=== PATIENT | female | born 1985 | race Caucasian/White ===

== ENCOUNTER → 2017-06-04 | Outpatient (CLI) | payer MEDICAID, SELFPAY | PROVIDERS: Visit Provider Nurse Practitioner Family | DX: R53.83 Other fatigue (principal); E55.9 Vitamin D deficiency, unspecified; Z79.899 Other long term (current) drug therapy | CPT/HCPCS: 80053; 80061; 82306; 83036; 84439; 84443; 85025 ==

== ENCOUNTER 2017-06-18 14:21 | Emergency (ER) | payer MEDICAID, SELFPAY ==
[2017-06-18 15:07] VITALS: BP 154/69; PULSE 73; RESP 18; TEMP 36.6; O2SAT 97; BMI 31.9
[2017-06-18 15:30] LABS: Microscopic, Urine URINE MICROSCOPIC (MICROSCOPIC)
[2017-06-18 15:34] LABS: Appearance,Urine CLOUDY (Clear); Bilirubin,Urine Negative (Negative); Blood, Urine Negative (Negative); Color,Urine DK YELLOW (Yellow); Glucose,Urine (UA) Negative (Negative); Ketones,Urine Negative (Negative); Leukocyte Esterase,Urine Negative (Negative); Nitrate,Urine POSITIVE (Negative); PH,Urine 5.5 (5.0-8.5); Protein,Urine Negative (Negative); Specific Gravity, Urine >= 1.030 (1.005-1.030); Urobilinogen,Urine 0.2 EU/dl (0.2)
[2017-06-18 15:42] LABS: Alanine Aminotransferase 60 U/L (12-78); Albumin Level 3.8 gm/dL (3.4-5.0); Albumin/Globulin Ratio 1.1 (1.1-1.8); Alkaline Phosphatase 76 U/L (46-116); Amylase 32 U/L (25-125); Anion Gap 11.7 mEq/L (5-15); Aspartate Amino Transferase 36 U/L (15-37); Basophils % 0.3 % (0.1-2.0); Bilirubin,Total 0.6 mg/dL (0.2-1.0); Blood Urea Nitrogen 8 mg/dL (7-18); Calcium 8.5 mg/dL (8.5-10.1); Carbon Dioxide 23 mmol/L (21.0-32.0); Chloride 107 mmol/L (98-107); Creatinine Clearance Estimated 118 mg/ml (0-300); Eosinophils # 0.2 K/mm3 (0.0-0.4); Estimated Glomerular Filt Rate > 60 ml/min (>60); GFR (African American) > 60 ML/MIN (>60); Globulin 3.6 gm/dl (1.3-3.2); Glucose 107 mg/dL (74-106); Hematocrit 39.8 % (37.0-47.0); Hemoglobin 12.9 g/dL (12.2-16.2); Lymphocytes # 2.2 K/mm3 (0.7-4.5); Lymphocytes % 32.6 K/mm3 (10-50); Mean Corpuscular HGB Conc 32.5 g/dL (31.8-35.4); Mean Corpuscular Hemoglobin 29.2 pg (27.0-31.2); Mean Corpuscular Volume 89.8 fl (81-99); Mean Platelet Volume 7.7 fl (7.4-10.4); Monocytes # 0.3 K/mm3 (0.1-1.0); Monocytes % 4.7 % (1.7-9.3); Neutrophils % 59.3 % (37.0-80.0); Platelet Count 189 K/mm3 (142-424); Potassium 3.7 mmoL/L (3.5-5.1); Red Blood Count 4.43 M/mm3 (4.20-5.40); Red Cell Distribution Width 13.1 % (11.5-17.5); Sodium 138 mmol/L (136-145); Total Protein,Serum 7.4 gm/dL (6.4-8.2); White Blood Count 6.8 K/mm3 (4.8-10.8)
[2017-06-18 15:49] LABS: Bacteria,Urine 4+ /lpf
[2017-06-18 15:52] LABS: Lipase 113 u/L (73-393)
--- NOTE | 2017-06-18 16:50 | PC.NURSE ---
Provided patient with a warm blanket. She was asking how long it will be before the doctor is in and wanted to know if her labs were back. I explained that her labs are back and the doctor would be in as soon as possible. I explained the high volume
--- NOTE | 2017-06-18 17:08 | CT_ITS ---
CT abdomen pelvis wo con CLINICAL INDICATION: Right-sided abdominal pain ITS.REASON: ABD PAIN ORDERING PHYSICIAN: Amena Navarro MD PATIENT AGE: 32 years COMPARISON: None TECHNIQUE: Axial images obtained with sagittal and coronal reformats. PROCEDURE: Oral Contrast: None IV Contrast: None . FINDINGS: Lung bases are clear. There is mild diffuse hepatic steatosis with no focal liver lesion evident. No radiopaque gallstones. Mild splenomegaly at 14 cm. The pancreas and adrenal glands and gallbladder have an unremarkable unenhanced CT appearance. There is lobulation of the kidneys as a normal variant. No renal calculi or hydronephrosis. Unremarkable appendix. There is 3.6 cm isodensity in the right adnexa system with ovarian cyst. This may be confirmed with pelvic ultrasound clinically warranted. No focal inflammatory change of the pelvis. There is rounded soft tissue density in the adnexal region just superior and lateral to the region of the cervix on both sides slightly more prominent on the right. This is of unknown etiology and could be due to prominent vessels, dilated fallopian tube, or an enlarged lymph node. Probably not significantly changed from 05/09/2017. There is a small amount fluid in the pelvis.. Ventral hernia repair with persistent herniation of fat into the anterior abdominal wall superficial to the hernia repair as before IMPRESSION: 1. Probable 3.6 cm right ovarian cyst which may be confirmed with ultrasound. Nodularity is present in the adnexal region bilaterally slightly more prominent on the left and may be due to prominent vessels, prominence of the fallopian tube, or small lymph nodes probably not significant changed 2. Mild splenomegaly. 3. Other nonacute findings as described above
[2017-06-18 17:45] LABS: Urine Pregnancy, HCG Qual. Negative (Negative)
--- NOTE | 2017-06-18 18:28 | [facility].EDGENADL ---
ED Disposition Clinical Impression: Pyuria, Acute right flank pain Disposition: Home, Self-Care Condition on Discharge: Good Instructions: DI for Flank Pain Additional Instructions: Rx pyridium and Bactrim, see your family MD next week for recheck. Prescriptions: Phenazopyridine HCl [Pyridium 200mg Tablet] 200 mg PO TIDP PRN #6 tablet PRN Reason: pain with urination Sulfamethoxazole/Trimethoprim [Bactrim DS tablet] 1 each PO BID #14 tablet Referrals: Jean-Pierre De Los Santos MD [Primary Care Provider] - - Critical Care Critical Care Time: No Attestation: On 06/18/17, the high probability of a clinically significant, sudden or life threatening deterioration of the following system(s) required my full and direct attention, intervention and personal management. The time I documented below is in addition to time spent performing reported procedures but includes the following listed in this critical care notation. Medical Decision Making Vital Signs: 06/18/17 15:07 Temperature 97.9 F Temperature Source Oral Pulse Rate [Right Brachial] 73 Respiratory Rate 18 Blood Pressure [Right Arm] 154/69 Blood Pressure Mean [Right Arm] 97 Blood Pressure Source [Right Arm] Automatic Cuff Blood Pressure Position [Right Arm] Sitting 02 Sat by Pulse Oximetry 97 Oxygen Delivery Method Room Air - Lab Data Lab results reviewed: Yes: I reviewed the patient's lab results. Lab Results 06/18/17 15:15: Urine Color Dk yellow, Urine Appearance Cloudy, Urine pH 5.5, Ur Specific [place] >= 1.030, Urine Protein Negative, Urine Glucose (UA) Negative, Urine Ketones Negative, Urine Blood Negative, Urine Nitrate Positive, Urine Bilirubin Negative, Urine Urobilinogen 0.2, Ur Leukocyte Esterase Negative, Urine WBC 10-20, Ur Squamous Epith Cells 5-10, Urine Bacteria 4+ 06/18/17 15:15: WBC 6.8, RBC 4.43, Hgb 12.9, Hct 39.8, MCV 89.8, MCH 29.2, MCHC 32.5, RDW 13.1, Plt Count 189, MPV 7.7, Neut % (Auto) 59.3, Lymph % (Auto) 32.6, [place] % (Auto) 4.7, Eos % (Auto) 3.0, Baso % (Auto) 0.3, Neut # (Auto) 4.0, Lymph # (Auto) 2.2, [place] # (Auto) 0.3, Eos # (Auto) 0.2, Baso # (Auto) 0.0 06/18/17 15:15: Sodium 138, Potassium 3.7, Chloride 107, Carbon Dioxide 23, Anion Gap 11.7, BUN 8, Creatinine 0.90, Estimated Creat Clear 118, Estimated GFR > 60, Est GFR ( Amer) > 60, Glucose 107 H, Calcium 8.5, Total Bilirubin 0.6, AST 36, ALT 60, Alkaline Phosphatase 76, Total Protein 7.4, Albumin 3.8, Globulin 3.6 H, Albumin/Globulin Ratio 1.1, Amylase 32, Lipase 113 06/18/17 15:25: Urine HCG, Qual Negative Result diagrams: 06/18/17 15:15 06/18/17 15:15 Orders (Tests/Meds): ED MEDICATIONS Generic Name Dose Route Start Last Admin Trade Name Freq PRN Reason Stop Dose Admin Sodium Chloride 10 ml 06/18/17 15:23 Saline Flush 10ml Syringe IV 07/18/17 15:22 NEEDED PRN Maintain IV Site ORDERS Category Date Time Status Urine Culture Stat Micro 06/18/17 15:15 Received - CT Data CT Scan: Abdomen, Pelvis Time Received: 18:[address] Reviewed: Yes: I have reviewed the patient's CT results, I have viewed the radiologist's interpretation Preliminary Findings: Abnormal Findings Narrative: R ovarian cyst; mild splenomegaly per report - Zay Inquiry Pt receiving controlled substance: No General Adult HPI - General Chief complaint: PAIN Stated complaint: POSS UTI,HIGH LIVER ENZYMES Time Seen by Provider: 06/18/17 15:30 Mode of Arrival: Family Vehicle Limitations: No Limitations Description of Symptoms (Recalled from ER Triage Doc. by RN): PT STATES THAT SHE WAS HERE A MONTH AGO WITH A UTI AND NOW SHE IS HAVING RIGHT LOWER BACK PAIN. INSTRUCTED BY [place] TO COME TO ER R/T LIVER ENZYMES BEING ELEVATED AND PT DOES HAVE AN APPOINTMENT WITH [facility] SPECIAL[facility]. - History of Present Illness HPI narrative: hx UTI, hx renal stents, LMP 05/23/17, no fever, having back pain right flank without hematuria or vaginal discharge,
--- NOTE | 2017-06-18 18:34 | ED_ITS ---
ED Disposition Clinical Impression: Pyuria, Acute right flank pain Disposition: Home, Self-Care Condition on Discharge: Good Instructions: DI for Flank Pain Additional Instructions: Rx pyridium and Bactrim, see your family MD next week for recheck. Prescriptions: Phenazopyridine HCl [Pyridium 200mg Tablet] 200 mg PO TIDP PRN #6 tablet PRN Reason: pain with urination Sulfamethoxazole/Trimethoprim [Bactrim DS tablet] 1 each PO BID #14 tablet Referrals: Jean-Pierre De Los Santos MD [Primary Care Provider] - - Critical Care Critical Care Time: No Attestation: On 06/18/17, the high probability of a clinically significant, sudden or life threatening deterioration of the following system(s) required my full and direct attention, intervention and personal management. The time I documented below is in addition to time spent performing reported procedures but includes the following listed in this critical care notation. Medical Decision Making Vital Signs: 06/18/17 15:07 Temperature 97.9 F Temperature Source Oral Pulse Rate [Right Brachial] 73 Respiratory Rate 18 Blood Pressure [Right Arm] 154/69 Blood Pressure Mean [Right Arm] 97 Blood Pressure Source [Right Arm] Automatic Cuff Blood Pressure Position [Right Arm] Sitting 02 Sat by Pulse Oximetry 97 Oxygen Delivery Method Room Air - Lab Data Lab results reviewed: Yes: I reviewed the patient's lab results. Lab Results 06/18/17 15:15: Urine Color Dk yellow, Urine Appearance Cloudy, Urine pH 5.5, Ur Specific [place] >= 1.030, Urine Protein Negative, Urine Glucose (UA) Negative, Urine Ketones Negative, Urine Blood Negative, Urine Nitrate Positive, Urine Bilirubin Negative, Urine Urobilinogen 0.2, Ur Leukocyte Esterase Negative , Urine WBC 10-20, Ur Squamous Epith Cells 5-10, Urine Bacteria 4+ 06/18/17 15:15: WBC 6.8, RBC 4.43, Hgb 12.9, Hct 39.8, MCV 89.8, MCH 29.2, MCHC 32.5, RDW 13.1, Plt Count 189, MPV 7.7, Neut % (Auto) 59.3, Lymph % (Auto) 32.6 , [place] % (Auto) 4.7, Eos % (Auto) 3.0, Baso % (Auto) 0.3, Neut # (Auto) 4.0, Lymph # (Auto) 2.2, [place] # (Auto) 0.3, Eos # (Auto) 0.2, Baso # (Auto) 0.0 06/18/17 15:15: Sodium 138, Potassium 3.7, Chloride 107, Carbon Dioxide 23, Anion Gap 11.7, BUN 8, Creatinine 0.90, Estimated Creat Clear 118, Estimated GFR > 60, Est GFR ( Amer) > 60, Glucose 107 H, Calcium 8.5, Total Bilirubin 0.6, AST 36, ALT 60, Alkaline Phosphatase 76, Total Protein 7.4, Albumin 3.8, Globulin 3.6 H, Albumin/Globulin Ratio 1.1, Amylase 32, Lipase 113 06/18/17 15:25: Urine HCG, Qual Negative Result diagrams: 06/18/17 15:15 06/18/17 15:15 Orders (Tests/Meds): ED MEDICATIONS Generic Name Dose Route Start Last Admin Trade Name Freq PRN Reason Stop Dose Admin Sodium Chloride 10 ml 06/18/17 15:23 Saline Flush 10ml Syringe IV 07/18/17 15:22 NEEDED PRN Maintain IV Site ORDERS Category Date Time Status Urine Culture Stat Micro 06/18/17 15:15 Received - CT Data CT Scan: Abdomen, Pelvis Time Received: 18:[address] Reviewed: Yes: I have reviewed the patient's CT results, I have viewed the radiologist's interpretation Preliminary Findings: Abnormal Findings Narrative: R ovarian cyst; mild splenomegaly per report - Zay Inquiry Pt receiving controlled substance: No General Adult HPI - General Chief complaint: PAIN State
== END 2017-06-18 18:58 | disposition home or self-care (01) ==
PROVIDERS: Emergency Provider Emergency Medicine; PCP Emergency Medicine
DX: N39.0 Urinary tract infection, site not specified (principal); N83.201 Unspecified ovarian cyst, right side; Z88.6 Allergy status to analgesic agent
CPT/HCPCS: 74176; 80053; 81001; 81025; 82150; 83690; 85025; 87086; 87088; 87186; 99284

== ENCOUNTER → 2017-07-06 15:28 | Outpatient (CLI) | payer MEDICAID, SELFPAY ==
[2017-07-06 19:32] LABS: T4 (Thyroxine) 7.1 ug/dl (4.7-13.3); Thyroid Stimulating Hormone 5.34 uIU/ml (0.358-3.740)
== END ==
PROVIDERS: PCP Emergency Medicine; Visit Provider Nurse Practitioner Family
DX: E03.9 Hypothyroidism, unspecified (principal)
CPT/HCPCS: 36415; 84436; 84443

== ENCOUNTER 2017-07-12 19:53 | Emergency (ER) | payer MEDICAID, SELFPAY | END 2017-07-12 21:38 | disposition left against medical advice (07) | LOC: ER 21:36 | PROVIDERS: Emergency Provider Emergency Medicine; PCP Emergency Medicine | DX: Z53.29 Procedure and treatment not carried out because of patient's decision for other reasons (principal) ==

== ENCOUNTER 2017-07-19 21:21 | Emergency (ER) | payer MEDICAID, SELFPAY ==
[2017-07-19 21:27] VITALS: BP 115/68; PULSE 73; RESP 18; TEMP 36.8; O2SAT 98; BMI 32.5
[2017-07-19 22:00] LABS: Microscopic, Urine URINE MICROSCOPIC (MICROSCOPIC)
[2017-07-19 22:01] VITALS: BP 113/65; PULSE 66; RESP 18; TEMP 36.8; O2SAT 98
[2017-07-19 22:01] LABS: Appearance,Urine CLEAR (Clear); Bilirubin,Urine Negative (Negative); Blood, Urine 3+ (Negative); Color,Urine YELLOW (Yellow); Glucose,Urine (UA) Negative (Negative); Ketones,Urine Negative (Negative); Leukocyte Esterase,Urine Negative (Negative); Nitrate,Urine Negative (Negative); Protein,Urine Negative (Negative)
[2017-07-19 22:03] LABS: Basophils % 0.5 % (0.1-2.0); Eosinophils # 0.3 K/mm3 (0.0-0.4); Eosinophils % 5.5 % (0.1-12.0); Hematocrit 36.9 % (37.0-47.0); Hemoglobin 12.7 g/dL (12.2-16.2); Lymphocytes % 37.8 K/mm3 (10-50); Mean Corpuscular HGB Conc 34.5 g/dL (31.8-35.4); Mean Corpuscular Hemoglobin 30.7 pg (27.0-31.2); Mean Corpuscular Volume 88.9 fl (81-99); Mean Platelet Volume 7.2 fl (7.4-10.4); Monocytes # 0.2 K/mm3 (0.1-1.0); Monocytes % 4.2 % (1.7-9.3); Neutrophils # 2.8 K/mm3 (1.8-7.8); Platelet Count 176 K/mm3 (142-424); Red Blood Count 4.15 M/mm3 (4.20-5.40); Red Cell Distribution Width 12.7 % (11.5-17.5); White Blood Count 5.4 K/mm3 (4.8-10.8)
--- NOTE | 2017-07-19 22:04 | CT_ITS ---
CT abdomen pelvis wo con CLINICAL INDICATION: Abdominal pain with nausea and vomiting ITS.REASON: abd pain ORDERING PHYSICIAN: Jean-Pierre De Los Santos MD PATIENT AGE: 32 years COMPARISON: 06/18/2017 TECHNIQUE: Axial images obtained with sagittal and coronal reformats. PROCEDURE: Oral Contrast: None IV Contrast: None . FINDINGS: Lung bases are clear. No focal liver lesion. Splenomegaly at 15 cm. The adrenal glands, pancreas, gallbladder, kidneys, ureters, and urinary bladder have an unremarkable unenhanced appearance.. No intestinal obstruction or free air. No evidence of appendicitis or diverticulitis. Minimal amount fluid is present in the pelvis nonspecific. No pelvic mass or abnormal fluid collection. No change prior anterior midline ventral hernia repair with mesh once again noted. Again noted is some ventral herniation of the fat into the intra-abdominal wall in the supraumbilical region not significantly changed. No acute bony anomalies. IMPRESSION: 1. No change with no acute finding. 2. No change prior anterior midline ventral hernia repair with mesh once again noted. Again noted is some ventral herniation of the fat into the intra-abdominal wall in the supraumbilical region not significantly changed 3. Splenomegaly
[2017-07-19 22:05] LABS: Urine Pregnancy, HCG Qual. Negative (Negative)
[2017-07-19 22:06] LABS: Lipase 110 u/L (73-393)
[2017-07-19 22:11] LABS: Alanine Aminotransferase 56 U/L (12-78); Albumin Level 3.5 gm/dL (3.4-5.0); Alkaline Phosphatase 74 U/L (46-116); Amylase 32 U/L (25-125); Anion Gap 9.3 mEq/L (5-15); Aspartate Amino Transferase 30 U/L (15-37); Bilirubin,Total 0.5 mg/dL (0.2-1.0); Blood Urea Nitrogen 9 mg/dL (7-18); Calcium 8.3 mg/dL (8.5-10.1); Carbon Dioxide 26 mmol/L (21.0-32.0); Chloride 105 mmol/L (98-107); Creatinine Clearance Estimated 170 mL/min (0-300); Creatinine,Serum 0.62 mg/dL (0.55-1.02); Estimated Glomerular Filt Rate 111 ml/min (>60); GFR (African American) 134 ML/MIN (>60); Globulin 3.5 gm/dl (1.3-3.2); Glucose 110 mg/dL (74-106); Potassium 3.3 mmoL/L (3.5-5.1); Sodium 137 mmol/L (136-145)
[2017-07-19 22:42] LABS: Bacteria,Urine 1+ /lpf; Squamous Epithelial Cell,Urine Occasional #/hpf (0-5)
[2017-07-19 23:06] VITALS: BP 106/53; PULSE 85; RESP 18; O2SAT 99
--- NOTE | 2017-07-19 23:28 | HMH.EDNVD ---
ED Disposition Clinical Impression: Abdominal pain Qualifiers: Abdominal location: unspecified location Qualified Code(s): R10.9 - Unspecified abdominal pain Disposition: Home, Self-Care Condition on Discharge: Good Instructions: DI for Acute Abdomen Additional Instructions: see pcp for follow up Referrals: Jean-Pierre De Los Santos MD [Primary Care Provider] - - Critical Care Critical Care Time: No Attestation: On 07/19/17, the high probability of a clinically significant, sudden or life threatening deterioration of the following system(s) required my full and direct attention, intervention and personal management. The time I documented below is in addition to time spent performing reported procedures but includes the following listed in this critical care notation. Medical Decision Making - Medical Records Medical records reviewed: Yes: I reviewed the patient's medical records. Vital Signs: 07/19/17 21:27 07/19/17 22:01 07/19/17 23:06 Temperature 98.3 F 98.3 F Temperature Source Oral Oral Pulse Rate [Right Radial] 73 66 85 Respiratory Rate 18 18 18 Blood Pressure [Right Arm] 115/68 113/65 106/53 Blood Pressure Mean [Right Arm] 83 81 70 Blood Pressure Source [Right Arm] Automatic Cuff Automatic Cuff Automatic Cuff Blood Pressure Position [Right Arm] Sitting Sitting Supine 02 Sat by Pulse Oximetry 98 98 99 Oxygen Delivery Method Room Air Room Air Room Air - Lab Data Lab results reviewed: Yes: I reviewed the patient's lab results. Lab Results 07/19/17 21:49: WBC 5.4, RBC 4.15 L, Hgb 12.7, Hct 36.9 L, MCV 88.9, MCH 30.7, MCHC 34.5, RDW 12.7, Plt Count 176, MPV 7.2 L, Neut % (Auto) 52.0, Lymph % (Auto) 37.8, [place] % (Auto) 4.2, Eos % (Auto) 5.5, Baso % (Auto) 0.5, Neut # (Auto) 2.8, Lymph # (Auto) 2.0, [place] # (Auto) 0.2, Eos # (Auto) 0.3, Baso # (Auto) 0.0 07/19/17 21:49: Sodium 137, Potassium 3.3 L, Chloride 105, Carbon Dioxide 26, Anion Gap 9.3, BUN 9, Creatinine 0.62, Estimated Creat Clear 170, Estimated GFR 111, Est GFR ( Amer) 134, Glucose 110 H, Calcium 8.3 L, Total Bilirubin 0.5, AST 30, ALT 56, Alkaline Phosphatase 74, Total Protein 7.0, Albumin 3.5, Globulin 3.5 H, Albumin/Globulin Ratio 1.0 L, Amylase 32 07/19/17 21:49: Lipase 110 07/19/17 21:58: Urine Color Yellow, Urine Appearance Clear, Urine pH 7.0, Ur Specific [place] 1.020, Urine Protein Negative, Urine Glucose (UA) Negative, Urine Ketones Negative, Urine Blood 3+, Urine Nitrate Negative, Urine Bilirubin Negative, Urine Urobilinogen 4.0, Ur Leukocyte Esterase Negative, Urine RBC 10-20, Urine WBC 3-5, Ur Squamous Epith Cells Occasional, Urine Bacteria 1+ 07/19/17 21:58: Urine HCG, Qual Negative Result diagrams: 07/19/17 21:49 07/19/17 21:49 Orders (Tests/Meds): ED MEDICATIONS Discontinued Medications Generic Name Dose Route Start Last Admin Trade Name Freq PRN Reason Stop Dose Admin Sodium Chloride 1,000 mls @ 999 mls/hr 07/19/17 22:00 07/19/17 21:52 Sod Chloride 0.9% 1000ml Bag IV 07/19/17 23:00 999 mls/hr .Q1H1M HAIDER Administration ORDERS Category Date Time Status CT abdomen pelvis wo con Stat Cat Scan 07/19/17 22:04 Taken TSH [Thyroid Stimulating Hormone] Stat Lab 07/19/17 23:28 Ordered - CT Data CT Scan: Abdomen, Pelvis Time Received: 23:[address] Reviewed: Yes: I have viewed the radiologist's interpretation Preliminary Findings: Abnormal - Zay Inquiry Pt receiving controlled substance: No Nausea/Vomiting/Diarrhea HPI - General Chief complaint: Abdominal Pain Stated complaint: weakness,bleeding not her period Time Seen by Provider: 07/19/17 23:29 Mode of Arrival: Ambulatory Source of Information: Patient, Significant Other, Medical Record Limitations: No Limitations Description of Symptoms (Recalled from ER Triage Doc. by RN): Pt reports she had a mesh implant put in January 2017. She currenlty reports lower central abdominal pain, heavy menstration, weakness, and dizziness that st
--- NOTE | 2017-07-19 23:32 | ED_ITS ---
ED Disposition Clinical Impression: Abdominal pain Qualifiers: Abdominal location: unspecified location Qualified Code(s): R10.9 - Unspecified abdominal pain Disposition: Home, Self-Care Condition on Discharge: Good Instructions: DI for Acute Abdomen Additional Instructions: see pcp for follow up Referrals: Jean-Pierre De Los Santos MD [Primary Care Provider] - - Critical Care Critical Care Time: No Attestation: On 07/19/17, the high probability of a clinically significant, sudden or life threatening deterioration of the following system(s) required my full and direct attention, intervention and personal management. The time I documented below is in addition to time spent performing reported procedures but includes the following listed in this critical care notation. Medical Decision Making - Medical Records Medical records reviewed: Yes: I reviewed the patient's medical records. Vital Signs: 07/19/17 21:27 07/19/17 22:01 07/19/17 23:06 Temperature 98.3 F 98.3 F Temperature Source Oral Oral Pulse Rate [Right Radial] 73 66 85 Respiratory Rate 18 18 18 Blood Pressure [Right Arm] 115/68 113/65 106/53 Blood Pressure Mean [Right Arm] 83 81 70 Blood Pressure Source [Right Arm] Automatic Cuff Automatic Cuff Automatic Cuff Blood Pressure Position [Right Arm] Sitting Sitting Supine 02 Sat by Pulse Oximetry 98 98 99 Oxygen Delivery Method Room Air Room Air Room Air - Lab Data Lab results reviewed: Yes: I reviewed the patient's lab results. Lab Results 07/19/17 21:49: WBC 5.4, RBC 4.15 L, Hgb 12.7, Hct 36.9 L, MCV 88.9, MCH 30.7, MCHC 34.5, RDW 12.7, Plt Count 176, MPV 7.2 L, Neut % (Auto) 52.0, Lymph % (Auto ) 37.8, [place] % (Auto) 4.2, Eos % (Auto) 5.5, Baso % (Auto) 0.5, Neut # (Auto) 2.8, Lymph # (Auto) 2.0, [place] # (Auto) 0.2, Eos # (Auto) 0.3, Baso # (Auto) 0.0 07/19/17 21:49: Sodium 137, Potassium 3.3 L, Chloride 105, Carbon Dioxide 26, Anion Gap 9.3, BUN 9, Creatinine 0.62, Estimated Creat Clear 170, Estimated GFR 111, Est GFR ( Amer) 134, Glucose 110 H, Calcium 8.3 L, Total Bilirubin 0.5, AST 30, ALT 56, Alkaline Phosphatase 74, Total Protein 7.0, Albumin 3.5, Globulin 3.5 H, Albumin/Globulin Ratio 1.0 L, Amylase 32 07/19/17 21:49: Lipase 110 07/19/17 21:58: Urine Color Yellow, Urine Appearance Clear, Urine pH 7.0, Ur Specific [place] 1.020, Urine Protein Negative, Urine Glucose (UA) Negative, Urine Ketones Negative, Urine Blood 3+, Urine Nitrate Negative, Urine Bilirubin Negative, Urine Urobilinogen 4.0, Ur Leukocyte Esterase Negative, Urine RBC 10- 20, Urine WBC 3-5, Ur Squamous Epith Cells Occasional, Urine Bacteria 1+ 07/19/17 21:58: Urine HCG, Qual Negative Result diagrams: 07/19/17 21:49 07/19/17 21:49 Orders (Tests/Meds): ED MEDICATIONS Discontinued Medications Generic Name Dose Route Start Last Admin Trade Name Freq PRN Reason Stop Dose Admin Sodium Chloride 1,000 mls @ 999 mls/hr 07/19/17 22:00 07/19/17 21:52 Sod Chloride 0.9% 1000ml Bag IV 07/19/17 23:00 999 mls/hr .Q1H1M HAIDER Administration ORDERS Category Date Time Status CT abdomen pelvis wo con Stat Cat Scan 07/19/17 22:04 Taken TSH [Thyroid Stimulating Hormone] Stat Lab 07/19/17 23:28 Ordered - CT Data CT Scan: Abdomen, Pelvis Time Received: 23:[address] Reviewed: Yes: I have viewed the radiologist's interpretation Prelim
[2017-07-19 23:41] VITALS: BP 106/53; PULSE 85; RESP 16; TEMP 36.8; O2SAT 99
[2017-07-20 01:15] LABS: Thyroid Stimulating Hormone 2.96 uIU/ml (0.358-3.740)
== END 2017-07-19 23:43 | disposition home or self-care (01) ==
PROVIDERS: Emergency Provider Emergency Medicine; PCP Emergency Medicine
DX: R10.9 Unspecified abdominal pain (principal); Z79.899 Other long term (current) drug therapy; Z88.8 Allergy status to other drugs, medicaments and biological substances
CPT/HCPCS: 74176; 80053; 81001; 81025; 82150; 83690; 84443; 85025; 96365; 99282

== ENCOUNTER → 2017-08-11 13:05 | Outpatient (CLI) | payer MEDICAID, SELFPAY ==
[2017-08-11 14:01] LABS: T4 (Thyroxine) 9.1 ug/dl (4.7-13.3); Thyroid Stimulating Hormone 10.06 uIU/ml (0.358-3.740)
== END ==
PROVIDERS: Nurse Practitioner Family; Visit Provider Emergency Medicine
DX: E03.9 Hypothyroidism, unspecified (principal)
CPT/HCPCS: 36415; 84436; 84443

== ENCOUNTER → 2017-11-29 10:45 | Outpatient (REF) | payer MEDICAID, SELFPAY ==
[2017-11-29 14:12] LABS: Alanine Aminotransferase 42 U/L (12-78); Albumin Level 3.7 gm/dL (3.4-5.0); Albumin/Globulin Ratio 1.1 (1.1-1.8); Alkaline Phosphatase 67 U/L (46-116); Anion Gap 14.5 mEq/L (5-15); Aspartate Amino Transferase 27 U/L (15-37); Bilirubin,Total 0.5 mg/dL (0.2-1.0); Blood Urea Nitrogen 6 mg/dL (7-18); Calcium 8.9 mg/dL (8.5-10.1); Carbon Dioxide 24 mmol/L (21.0-32.0); Chloride 105 mmol/L (98-107); Chol/HDL Ratio 5.4 (1-3.5); Cholesterol 185 mg/dL (140-200); Estimated Glomerular Filt Rate 115 ml/min (>60); GFR (African American) 139 ML/MIN (>60); Globulin 3.4 gm/dl (1.3-3.2); Glucose 104 mg/dL (74-106); HDL Cholesterol 34 mg/dL (29-89); LDL Cholesterol 116 mg/dL (0-130); Potassium 4.5 mmoL/L (3.5-5.1); Sodium 139 mmol/L (136-145); Thyroid Stimulating Hormone 28.83 uIU/ml (0.358-3.740); Total Protein,Serum 7.1 gm/dL (6.4-8.2); Triglycerides 173 mg/dL (30-200); VLDL Cholesterol 35 mg/dL (0-40)
[2017-11-29 14:37] LABS: Basophils % 0.3 % (0.1-2.0); Eosinophils # 0.6 K/mm3 (0.0-0.4); Eosinophils % 6.5 % (0.1-12.0); Hematocrit 45.4 % (37.0-47.0); Hemoglobin 14.8 g/dL (12.2-16.2); Lymphocytes # 2.2 K/mm3 (0.7-4.5); Mean Corpuscular HGB Conc 32.7 g/dL (31.8-35.4); Mean Corpuscular Hemoglobin 29.5 pg (27.0-31.2); Mean Corpuscular Volume 90.1 fl (81-99); Mean Platelet Volume 8.2 fl (7.4-10.4); Monocytes # 0.3 K/mm3 (0.1-1.0); Monocytes % 3.1 % (1.7-9.3); Neutrophils # 5.7 K/mm3 (1.8-7.8); Neutrophils % 65.1 % (37.0-80.0); Platelet Count 213 K/mm3 (142-424); Red Blood Count 5.04 M/mm3 (4.20-5.40); Red Cell Distribution Width 12.7 % (11.5-17.5); White Blood Count 8.8 K/mm3 (4.8-10.8)
[2017-11-29 17:16] LABS: Hemoglobin A1C 5.6 % (0.0-7.0)
[2017-11-30 12:50] LABS: Vitamin B12 557 pg/mL (232-1245); Vitamin D 25 Hydroxy 27.8 ng/mL (30.0-100.0)
== END ==
LOC: LAB 10:45
PROVIDERS: Visit Provider Nurse Practitioner Family
DX: R53.83 Other fatigue (principal); E04.9 Nontoxic goiter, unspecified; R13.10 Dysphagia, unspecified; Z80.8 Family history of malignant neoplasm of other organs or systems; E07.9 Disorder of thyroid, unspecified; E55.9 Vitamin D deficiency, unspecified
CPT/HCPCS: 80053; 80061; 82607; 82652; 83036; 84443; 85025

== ENCOUNTER → 2017-12-13 09:30 | Outpatient (CLI) | payer MEDICAID, SELFPAY ==
--- NOTE | 2017-12-13 09:32 | US_ITS ---
US thyroid HISTORY: ITS.REASON: pain ORDERING PHYSICIAN: Bonnie Ward PATIENT AGE: 32 years Comparison: None FINDINGS: The right lobe is 4.2 x 1.7 x 1.9 cm and has heterogeneous echogenicity without discrete nodule. The left lobe is 4.4 x 1.6 x 1.6 cm. There is a 7 mm solid appearing fairly well-circumscribed nodule in the upper pole The isthmus is slightly prominent at 5 mm. IMPRESSION: Thyromegaly with 7 mm solid-appearing nodule in the upper pole on the left. Consider 6 month follow-up to confirm short-term stability
== END ==
PROVIDERS: PCP Emergency Medicine; Visit Provider Nurse Practitioner Family
DX: E04.9 Nontoxic goiter, unspecified (principal); R13.10 Dysphagia, unspecified; Z80.8 Family history of malignant neoplasm of other organs or systems
CPT/HCPCS: 76536

== ENCOUNTER → 2017-12-23 15:51 | Outpatient (REF) | payer MEDICAID, SELFPAY | LOC: LAB 15:51 | PROVIDERS: Visit Provider Nurse Practitioner Family | DX: R25.2 Cramp and spasm (principal) ==